=== PATIENT | male | born 1960 | race Caucasian/White ===

== ENCOUNTER 2025-02-25 17:50 | Emergency (ER) | payer OTHER ==
[2025-02-25] MEDS ORDERED: Ketamine 50 MG/ML (10ML VIAL) ONE (18:26)
[2025-02-25 18:28] LABS: #Basophils 0.0 thou/uL (0.0-0.2); #Eosinophils 0.0 thou/uL (0.0-0.7); #Lymphocytes 1.0 thou/uL (1.20-3.40); #Monocytes 0.2 thou/uL (0.11-0.59); #Neutrophils 4.0 thou/uL (1.40-6.50); %Basophils 0.8 % (0.0-1.0); %Eosinophils 0.2 % (0.0-10.0); %Lymphocytes 18.8 % (21.0-51.0); %Monocytes 3.7 % (0.0-10.0); %Neutrophils 76.5 % (42.0-75.0); Hematocrit 28.8 % (42.0-52.0); Hemoglobin 8.8 g/dL (14.0-18.0); Mean Corpuscular Hemoglobin 32.4 pg (27.0-31.0); Mean Corpuscular Volume 106.7 fl (78.0-98.0); Platelet Count 88 10x3/uL (130-400); Red Blood Cell (RBC) Count 2.70 mill/uL (4.70-6.10); White Blood Cell (WBC) Count 5.2 10x3/uL (4.8-10.8)
[2025-02-25 18:33] LABS: ALT (SGPT) 1494 U/L (Less than 45); AST (SGOT) 1448 U/L (11-34); Albumin 2.3 g/dL (3.1-4.5); Alkaline Phosphatase 66 U/L (40-110); Anion Gap 31 mmol/L (10-20); BUN (Urea Nitrogen) 50 mg/dL (8.4-25.7); Bilirubin, Total 0.3 mg/dL (0.3-1.2); Calc. Creatinine Clearance 0 mL/min (70-130); Calcium 10.3 mg/dL (7.8-10.44); Carbon Dioxide 30 mmol/L (23-31); Chloride 98 mmol/L (98-107); Globulin 2.1 g/dL (2.4-3.5); Glucose 77 mg/dL (80-115); Potassium 5.7 mmol/L (3.5-5.1)
[2025-02-25 18:34] LABS: Sodium 153 mmol/L (136-145)
[2025-02-25 18:38] LABS: Acetaminophen Less than 10 mcg/mL (Less than 10); Salicylate Less than 8.0 mg/dL (Less than 8.0)
[2025-02-25 18:41] LABS: Troponin I 0.204 ng/mL (< 0.028)
[2025-02-25 18:47] LABS: Bicarbonate (HCO3v) 38.3 mmol/L (22.0-28.0); CO2 Tension (PvCO2) 97.7 mmHg (42.0-51.0); Calcium, Ionized 1.34 mmol/L (1.15-1.33); Chloride 100 mmol/L (98-107); Hemoglobin - Calc 8.2 g/dL (14.0-18.0); Potassium 5.3 mmol/L (3.5-5.1); Sodium 146 mmol/L (138-145); T. Carbon Dioxide 41.3 mmol/L (22.0-28.0); vO2 Saturation-calc 97.5 % (60.0-85.0)
[2025-02-25] MEDS ORDERED: Cefepime 2 GM VIAL ONE (18:47)
[2025-02-25 18:48] LABS: Magnesium 2.9 mg/dL (1.6-2.6)
[2025-02-25 18:52] LABS: INR-International Normal Ratio 2.4; Prothrombin Time 26.0 sec (12.0-14.7)
[2025-02-25 18:54] LABS: PTT 80.5 sec (22.9-36.1)
== END 2025-02-25 19:41 | disposition short-term general hospital (02) ==
LOC: MADERS 17:50
DX: I46.9 Cardiac arrest, cause unspecified (principal)
CPT/HCPCS: 31500; 36416; 36556; 51702; 71045; 80307; 82330; 82803; 83605; 83690; 83735; 84484; 85025; 85610; 85730; 93005; 94760; 96374; 99292; J0692; J3373; J3490; J7050